=== PATIENT | female | born 1930 | race American Indian/Alaskan Native ===

== ENCOUNTER 2021-12-09 12:24 | Inpatient (IN) | payer MEDICARE ==
--- NOTE | 2021-12-09 13:44 | Emergency Department Report ---
ED General Adult HPI - General Stated complaint: AMS Time Seen by Provider: 12/09/21 13:33 Source: EMS Mode of arrival: Stretcher - History of Present Illness Initial comments: Patient is an 89-year-old female with history of Alzheimer's dementia brought in by EMS from home for evaluation of altered mental status. EMS reports that she is being visited by family members who have not seen her in 3 years and felt that she was not acting the same. Patient's only complaint at this time is being thirsty. She denies any pain. EMS reports that she lives with a payroll lead who is of the same age. EMS feels social work consult is warranted as both are severely limited physically. - Related Data Allergies Allergy/AdvReac Type Severity Reaction Status Date / Time Penicillins Allergy Anaphylaxis Verified 12/09/21 13:36 ED Review of Systems ROS: Stated complaint: AMS Other details as noted in HPI Constitutional: denies: chills, fever Respiratory: denies: cough, shortness of breath, wheezing Cardiovascular: denies: chest pain, palpitations Endocrine: no symptoms reported Gastrointestinal: denies: abdominal pain, nausea, diarrhea Musculoskeletal: denies: back pain, joint swelling, arthralgia Skin: denies: rash, lesions Neurological: denies: headache Psychiatric: denies: anxiety, depression ED Physical Exam - General General appearance: alert, in no apparent distress - Head Head exam: Present: atraumatic, normocephalic - Eye Eye exam: Present: normal appearance, EOMI - Respiratory Respiratory exam: Present: normal lung sounds bilaterally. Absent: respiratory distress - Cardiovascular Cardiovascular Exam: Present: regular rate, normal rhythm, normal heart sounds - GI/Abdominal GI/Abdominal exam: Present: soft. Absent: distended, tenderness - Neurological Exam Neurological exam: Present: alert, oriented X3 - Psychiatric Psychiatric exam: Present: normal affect, normal mood - Skin Skin exam: Present: warm, dry, intact, normal color ED Course Vital Signs 12/09/21 12/09/21 12/09/21 13:37 13:43 13:45 Temperature 98.1 F Pulse Rate 95 H 94 H 95 H Respiratory 24 25 H 26 H Rate Blood Pressure 98/61 98/61 O2 Sat by Pulse 97 96 96 Oximetry 12/09/21 12/09/21 12/09/21 13:48 14:01 14:15 Temperature Pulse Rate 93 H 92 H Respiratory 25 H 20 Rate Blood Pressure 106/58 106/58 O2 Sat by Pulse 98 96 Oximetry 12/09/21 12/09/21 12/09/21 14:31 14:45 15:01 Temperature Pulse Rate 91 H 93 H 90 Respiratory 14 16 21 Rate Blood Pressure 109/59 109/59 58/29 O2 Sat by Pulse 94 94 Oximetry 12/09/21 12/09/21 12/09/21 15:15 15:31 15:45 Temperature Pulse Rate 92 H 92 H 92 H Respiratory 26 H 23 21 Rate Blood Pressure 110/62 116/63 106/54 O2 Sat by Pulse 94 92 93 Oximetry 12/09/21 12/09/21 12/09/21 16:01 16:15 16:31 Temperature Pulse Rate 96 H 96 H 96 H Respiratory 19 17 17 Rate Blood Pressure 107/62 107/62 121/62 O2 Sat by Pulse 94 94 94 Oximetry 12/09/21 12/09/21 12/09/21 16:45 17:01 17:15 Temperature Pulse Rate 96 H 97 H 98 H Respiratory 16 18 19 Rate Blood Pressure 121/62 119/59 119/59 O2 Sat by Pulse 95 95 94 Oximetry 12/09/21 12/09/21 12/09/21 17:31 17:45 18:01 Temperature Pulse Rate 104 H 105 H 102 H Respiratory 19 21 26 H Rate Blood Pressure 102/66 115/73 121/65 O2 Sat by Pulse 98 94 95 Oximetry ED Medical Decision Making - Lab Data Result diagrams: 12/09/21 14:45 12/09/21 14:45 - Medical Decision Making Leukocytosis present at 15,000. CMP grossly unremarkable except for creatinine of 1.6. Patient given IV fluids.. Urinalysis shows WBCs greater than 182. Patient given IV Rocephin. Will admit for urinary tract infection. Patient reportedly lives with significant other who was family does not want her living with him. Patient will need social media senior associate consult during admission for possible long-term placement. Critical care attestation.: If time is entered above; I have spent that time in minutes in the direct care of this critically ill patient, excluding procedure time. ED Disposition Clinical Impression: Urinary tract infection Disposition: ADMITTED INPATIENT Is pt being admited?: Yes Condition: Stable Instructions: Urinary Tract Infection, Adult
[2021-12-09 15:10] LABS: Hematocrit 28.8 % (30.3-42.9); Hemoglobin 9.2 gm/dl (10.1-14.3); Mean Corpuscular HGB Conc 32 % (30-34); Mean Corpuscular Volume 95 fl (79-97); Platelet Count 255 K/mm3 (140-440); Red Blood Count 3.04 M/mm3 (3.65-5.03); Red Cell Distribution Width 16.6 % (13.2-15.2)
[2021-12-09 16:04] LABS: Basophils % (Manual) 0 % (0.0-1.8); Eosinophils % (Manual) 0 % (0.0-4.3); Total Cells Counted 100
[2021-12-09 16:07] LABS: Platelet Estimate Consistent w Auto; Poikilocytosis Few; Spherocytes Few
[2021-12-09 16:10] LABS: Albumin 3.3 g/dL (3.9-5); Bilirubin,Direct 0.3 mg/dL (0-0.2); Calcium 9.5 mg/dL (8.4-10.2)
[2021-12-09 17:43] LABS: Bilirubin,Urine NEG (Negative); Blood,Urine LG (Negative); Color,Urine Yellow (Yellow); Urobilinogen,Urine < 2.0 mg/dL (<2.0)
[2021-12-09 17:55] LABS: Mucus,Urine FEW /HPF
[2021-12-09 17:59] LABS: RBC,Urine > 182.0 /HPF (0.0-6.0); WBC,Urine > 182.0 /HPF (0.0-6.0)
[2021-12-09] MEDS ORDERED: LIDOCAINE-MPF (1%) 10 MG/1 ML VIAL 5 ML INFILTRATI ONE (18:07)
[2021-12-09] MEDS ORDERED: SODIUM CHLORIDE 0.9% 1000 ML 1,000 ML IV ONE (18:10)
[2021-12-09] MEDS ORDERED: ONDANSETRON 4 MG/2 ML INJ IV PRN (19:26)
[2021-12-09] MEDS ORDERED: MORPHINE 2 MG/1 ML INJ IV PRN (19:26)
[2021-12-09] MEDS: ACETAMINOPHEN 325 MG TAB PO PRN (23:47)
[2021-12-10 07:30] LABS: Hematocrit 28.3 % (30.3-42.9); Hemoglobin 9.4 gm/dl (10.1-14.3); Mean Corpuscular HGB Conc 33 % (30-34); Mean Corpuscular Volume 94 fl (79-97); Platelet Count 266 K/mm3 (140-440); Red Blood Count 3.02 M/mm3 (3.65-5.03); Red Cell Distribution Width 16.8 % (13.2-15.2)
[2021-12-10 07:31] LABS: Mean Platelet Volume 7.4 fl (6-12)
[2021-12-10 07:45] LABS: Albumin 3.4 g/dL (3.9-5); Calcium 9.9 mg/dL (8.4-10.2)
--- NOTE | 2021-12-10 08:19 | History and Physical Report ---
History of Present Illness Date of examination: 12/09/21 Date of admission: 12/09/21 19:26 Chief complaint: Altered mental status History of present illness: 89-year-old female with history of advancing dementia brought in for altered mental status. Patient lives with her boyfriend who is 91-year-old and who cooks for her and helps her around. Patient is able to walk very minimally. Decrease in ADLs. No fever. Dysuria present. Advancing dementia. Patient is totally dependent on her 91-year-old boyfriend. Patient and the family wants shelter facility for rehab to increase her mobility. ED course patient was found to have severe white count and signs and symptoms consistent with systemic inflammatory response syndrome Review of Systems ROS: Stated complaint: AMS Other details as noted in HPI Constitutional: denies: chills, fever Respiratory: denies: cough, shortness of breath, wheezing Cardiovascular: denies: chest pain, palpitations Endocrine: no symptoms reported Gastrointestinal: denies: abdominal pain, nausea, diarrhea Musculoskeletal: denies: back pain, joint swelling, arthralgia Skin: denies: rash, lesions Neurological: denies: headache Psychiatric: denies: anxiety, depression Past History Past Medical History: atrial fib, hyperlipidemia, other (Dementia, urinary tract infection) Social history: full code, other (Lives with a boyfriend who is 91-year-old) Family history: hypertension Medications and Allergies Allergies Allergy/AdvReac Type Severity Reaction Status Date / Time Penicillins Allergy Anaphylaxis Verified 12/09/21 13:36 Home Medications Medication Instructions Recorded Confirmed Last Taken Type Adults 50 Plus Multivitamin 50 tab PO DAILY 12/09/21 12/09/21 Unknown History Ascorbic Acid [Vitamin C with Stephanie 1,000 mg PO DAILY 12/09/21 12/09/21 Unknown History Hips] Atorvastatin [Lipitor Tab] 40 mg PO QHS 12/09/21 12/09/21 Unknown History Eliquis 5 mg PO BID 12/09/21 12/09/21 Unknown History Gabapentin 100 mg PO BID 12/09/21 12/09/21 Unknown History Klor-Con M20 20 meq PO BID 12/09/21 12/09/21 Unknown History Latanoprost 0.005 drop AU QHS 12/09/21 12/09/21 Unknown History Pantoprazole 40 mg PO DAILY 12/09/21 12/09/21 Unknown History amLODIPine 5 mg PO DAILY 12/09/21 12/09/21 Unknown History Active Meds: Active Medications Acetaminophen (Acetaminophen 325 Mg Tab) 650 mg PO Q4H PRN PRN Reason: Pain MILD(1-3)/Fever >100.5/LOPEZ Last Admin: 12/09/21 23:47 Dose: 650 mg Ceftriaxone Sodium (Rocephin/Ns 2 Gm/100 Ml) 2 gm in 100 mls @ 200 mls/hr IV Q24HR BREEZY; Protocol Morphine Sulfate (Morphine 2 Mg/1 Ml Inj) 2 mg IV Q4H PRN PRN Reason: Pain, Moderate (4-6) Ondansetron HCl (Ondansetron 4 Mg/2 Ml Inj) 4 mg IV Q8H PRN PRN Reason: Nausea And Vomiting Sodium Chloride (Sodium Chloride 0.9% 10 Ml Flush Syringe) 10 ml IV BID BREEZY Last Admin: 12/09/21 23:50 Dose: 10 ml Sodium Chloride (Sodium Chloride 0.9% 10 Ml Flush Syringe) 10 ml IV PRN PRN PRN Reason: LINE FLUSH Exam - Constitutional Vitals: Temp Pulse Resp BP Pulse Ox 97.9 F 82 19 90/54 96 12/10/21 05:12 12/10/21 05:12 12/10/21 05:12 12/10/21 05:12 12/10/21 05:12 General appearance: Present: no acute distress, well-nourished - EENT Eyes: Present: PERRL ENT: hearing intact, clear oral mucosa - Neck Neck: Present: supple, normal ROM - Respiratory Respiratory effort: normal Respiratory: bilateral: CTA - Cardiovascular Heart rate: 78 Rhythm: regular Heart Sounds: Present: S1 & S2. Absent: rub, click - Extremities Extremities: no ischemia, pulses intact, pulses symmetrical, No edema Peripheral Pulses: within normal limits - Abdominal General gastrointestinal: Present: soft, non-tender, non-distended, normal bowel sounds Female genitourinary: Present: normal - Integumentary Integumentary: Present: clear, warm, dry - Musculoskeletal Musculoskeletal: gait normal, strength equal bilaterally - Psychiatric Psychiatric: appropriate mood/affect, depressed, other (Short-term memory responsiveness) - Neurologic Neurologic: CNII-XII intact, moves all extremities - Allied Health Allied health notes reviewed: nursing, case management Results - Labs CBC & Chem 7: 12/10/21 05:56 12/10/21 05:56 Labs: Laboratory Last Values WBC 16.0 K/mm3 (4.5-11.0) H 12/10/21 05:56 RBC 3.02 M/mm3 (3.65-5.03) L 12/10/21 05:56 Hgb 9.4 gm/dl (10.1-14.3) L 12/10/21 05:56 Hct 28.3 % (30.3-42.9) L 12/10/21 05:56 MCV 94 fl (79-97) 12/10/21 05:56 MCH 31 pg (28-32) 12/10/21 05:56 MCHC 33 % (30-34) 12/10/21 05:56 RDW 16.8 % (13.2-15.2) H 12/10/21 05:56 Plt Count 266 K/mm3 (140-440) 12/10/21 05:56 [place] % (Auto) Tailer In 12/10/21 05:56 Add Manual Diff Complete 12/09/21 14:45 Total Counted 100 12/09/21 14:45 Seg Neuts % (Manual) 84.0 % (40.0-70.0) H 12/09/21 14:45 Band Neutrophils % 0 % 12/09/21 14:45 Lymphocytes % (Manual) 3.0 % (13.4-35.0) L 12/09/21 14:45 Reactive Lymphs % (Man) 0 % 12/09/21 14:45 Monocytes % (Manual) 13.0 % (0.0-7.3) H 12/09/21 14:45 Eosinophils % (Manual) 0 % (0.0-4.3) 12/09/21 14:45 Basophils % (Manual) 0 % (0.0-1.8) 12/09/21 14:45 Metamyelocytes % 0 % 12/09/21 14:45 Myelocytes % 0 % 12/09/21 14:45 Promyelocytes % 0 % 12/09/21 14:45 Blast Cells % 0 % 12/09/21 14:45 Nucleated RBC % Not Reportable 12/09/21 14:45 Seg Neutrophils # Man 12.8 K/mm3 (1.8-7.7) H 12/09/21 14:45 Band Neutrophils # 0.0 K/mm3 12/09/21 14:45 Lymphocytes # (Manual) 0.5 K/mm3 (1.2-5.4) L 12/09/21 14:45 Abs React Lymphs (Man) 0.0 K/mm3 12/09/21 14:45 Monocytes # (Manual) 2.0 K/mm3 (0.0-0.8) H 12/09/21 14:45 Eosinophils # (Manual) 0.0 K/mm3 (0.0-0.4) 12/09/21 14:45 Basophils # (Manual) 0.0 K/mm3 (0.0-0.1) 12/09/21 14:45 Metamyelocytes # 0.0 K/mm3 12/09/21 14:45 Myelocytes # 0.0 K/mm3 12/09/21 14:45 Promyelocytes # 0.0 K/mm3 12/09/21 14:45 Blast Cells # 0.0 K/mm3 12/09/21 14:45 WBC Morphology Not Reportable 12/09/21 14:45 Hypersegmented Neuts Not Reportable 12/09/21 14:45 Hyposegmented Neuts Rare 12/09/21 14:45 Hypogranular Neuts Not Reportable 12/09/21 14:45 Smudge Cells Not Reportable 12/09/21 14:45 Toxic Granulation Not Reportable 12/09/21 14:45 Toxic Vacuolation Not Reportable 12/09/21 14:45 Dohle Bodies Not Reportable 12/09/21 14:45 Pelger-Huet Anomaly Not Reportable 12/09/21 14:45 Jocelyn Rods Not Reportable 12/09/21 14:45 Platelet Estimate Consistent w auto 12/09/21 14:45 Clumped Platelets Not Reportable 12/09/21 14:45 Plt Clumps, EDTA Not Reportable 12/09/21 14:45 Large Platelets Not Reportable 12/09/21 14:45 Giant Platelets Not Reportable 12/09/21 14:45 Platelet Satelliting Not Reportable 12/09/21 14:45 Plt Morphology Comment Not Reportable 12/09/21 14:45 RBC Morphology Not Reportable 12/09/21 14:45 Dimorphic RBCs Not Reportable 12/09/21 14:45 Polychromasia Rare 12/09/21 14:45 Hypochromasia Not Reportable 12/09/21 14:45 Poikilocytosis Few 12/09/21 14:45 Anisocytosis Not Reportable 12/09/21 14:45 Microcytosis Not Reportable 12/09/21 14:45 Macrocytosis Not Reportable 12/09/21 14:45 Spherocytes Few 12/09/21 14:45 Pappenheimer Bodies Not Reportable 12/09/21 14:45 Sickle Cells Not Reportable 12/09/21 14:45 Target Cells Not Reportable 12/09/21 14:45 Tear Drop Cells Not Reportable 12/09/21 14:45 Ovalocytes Not Reportable 12/09/21 14:45 Helmet Cells Not Reportable 12/09/21 14:45 [place] Bodies Not Reportable 12/09/21 14:45 [place] Rings Not Reportable 12/09/21 14:45 [place] Cells Not Reportable 12/09/21 14:45 Bite Cells Not Reportable 12/09/21 14:45 Crenated Cell Not Reportable 12/09/21 14:45 Elliptocytes Not Reportable 12/09/21 14:45 Acanthocytes (Spur) Rare 12/09/21 14:45 Rouleaux Not Reportable 12/09/21 14:45 Hemoglobin C Crystals Not Reportable 12/09/21 14:45 Schistocytes Not Reportable 12/09/21 14:45 Malaria parasites Not Reportable 12/09/21 14:45 Shawn Bodies Not Reportable 12/09/21 14:45 Hem Pathologist Commnt No 12/09/21 14:45 Sodium 138 mmol/L (137-145) 12/10/21 05:56 Potassium 5.1 mmol/L (3.6-5.0) H 12/10/21 05:56 Chloride 104.4 mmol/L (98-107) 12/10/21 05:56 Carbon Dioxide 21 mmol/L (22-30) L 12/10/21 05:56 Anion Gap 18 mmol/L 12/10/21 05:56 BUN 25 mg/dL (7-17) H 12/10/21 05:56 Creatinine 1.8 mg/dL (0.6-1.2) H 12/10/21 05:56 Estimated GFR 32 ml/min 12/10/21 05:56 BUN/Creatinine Ratio 14 % 12/10/21 05:56 Glucose 94 mg/dL (65-100) 12/10/21 05:56 Calcium 9.9 mg/dL (8.4-10.2) 12/10/21 05:56 Total Bilirubin 1.00 mg/dL (0.1-1.2) 12/10/21 05:56 Direct Bilirubin 0.3 mg/dL (0-0.2) H 12/09/21 14:45 Indirect Bilirubin 0.6 mg/dL 12/09/21 14:45 AST 31 units/L (5-40) 12/10/21 05:56 ALT 7 units/L (7-56) 12/10/21 05:56 Alkaline Phosphatase 81 units/L (35-129) 12/10/21 05:56 Total Protein 7.8 g/dL (6.3-8.2) 12/10/21 05:56 Albumin 3.4 g/dL (3.9-5) L 12/10/21 05:56 Albumin/Globulin Ratio 0.8 % 12/10/21 05:56 Urine Color Yellow (Yellow) 12/09/21 15:21 Urine Turbidity Turbid (Clear) 12/09/21 15:21 Urine pH 6.0 (5.0-7.0) 12/09/21 15:21 Ur Specific [place] 1.010 (1.003-1.030) 12/09/21 15:21 Urine Protein 100 mg/dl mg/dL (Negative) 12/09/21 15:21 Urine Glucose (UA) Neg mg/dL (Negative) 12/09/21 15:21 Urine Ketones Neg mg/dL (Negative) 12/09/21 15:21 Urine Blood Lg (Negative) 12/09/21 15:21 Urine Nitrite Neg (Negative) 12/09/21 15:21 Urine Bilirubin Neg (Negative) 12/09/21 15:21 Urine Urobilinogen < 2.0 mg/dL (<2.0) 12/09/21 15:21 Ur Leukocyte Esterase Lg (Negative) 12/09/21 15:21 Urine WBC (Auto) > 182.0 /HPF (0.0-6.0) H 12/09/21 15:21 Urine RBC (Auto) > 182.0 /HPF (0.0-6.0) 12/09/21 15:21 U Epithel Cells (Auto) 6.0 /HPF (0-13.0) 12/09/21 15:21 Urine WBC Clumps 3+ /HPF 12/09/21 15:21 Urine Mucus Few /HPF 12/09/21 15:21 Short CBC 12/09/21 12/10/21 Range/Units 14:45 05:56 WBC 15.2 H 16.0 H (4.5-11.0) K/mm3 Hgb 9.2 L 9.4 L (10.1-14.3) gm/dl Hct 28.8 L 28.3 L (30.3-42.9) % Plt Count 255 266 (140-440) K/mm3 BMP 12/09/21 12/10/21 14:45 05:56 Sodium 138 138 Potassium 4.9 5.1 H Chloride 106.9 104.4 Carbon Dioxide 19 L 21 L BUN 23 H 25 H Creatinine 1.6 H 1.8 H Glucose 112 H 94 Calcium 9.5 9.9 Liver Function 12/09/21 12/10/21 Range/Units 14:45 05:56 Total Bilirubin 0.90 1.00 (0.1-1.2) mg/dL Direct Bilirubin 0.3 H (0-0.2) mg/dL AST 29 31 (5-40) units/L ALT 7 7 (7-56) units/L Alkaline Phosphatase 61 81 (35-129) units/L Albumin 3.3 L 3.4 L (3.9-5) g/dL Urine 12/09/21 Range/Units 15:21 Urine Color Yellow (Yellow) Urine pH 6.0 (5.0-7.0) Ur Specific [place] 1.010 (1.003-1.030) Urine Protein 100 mg/dl (Negative) mg/dL Urine Glucose (UA) Neg (Negative) mg/dL Short CBC 12/09/21 12/10/21 Range/Units 14:45 05:56 WBC 15.2 H 16.0 H (4.5-11.0) K/mm3 Hgb 9.2 L 9.4 L (10.1-14.3) gm/dl Hct 28.8 L 28.3 L (30.3-42.9) % Plt Count 255 266 (140-440) K/mm3 BMP 12/09/21 12/10/21 14:45 05:56 Sodium 138 138 Potassium 4.9 5.1 H Chloride 106.9 104.4 Carbon Dioxide 19 L 21 L BUN 23 H 25 H Creatinine 1.6 H 1.8 H Glucose 112 H 94 Calcium 9.5 9.9 Liver Function 12/09/21 12/10/21 Range/Units 14:45 05:56 Total Bilirubin 0.90 1.00 (0.1-1.2) mg/dL Direct Bilirubin 0.3 H (0-0.2) mg/dL AST 29 31 (5-40) units/L ALT 7 7 (7-56) units/L Alkaline Phosphatase 61 81 (35-129) units/L Albumin 3.3 L 3.4 L (3.9-5) g/dL Urine 12/09/21 Range/Units 15:21 Urine Color Yellow (Yellow) Urine pH 6.0 (5.0-7.0) Ur Specific [place] 1.010 (1.003-1.030) Urine Protein 100 mg/dl (Negative) mg/dL Urine Glucose (UA) Neg (Negative) mg/dL [place]/IV: Voiding Method External Female Catheter Assessment and Plan Advance Directives: Yes (Full code) VTE prophylaxis?: Chemical Plan of care discussed with patient/family: Yes - Patient Problems (1) SIRS (systemic inflammatory response syndrome) Current Visit: Yes Status: Acute Plan to address problem: High white count and urinary tract infection consistent with systemic inflammatory response syndrome (2) Urinary tract infection Current Visit: Yes Status: Acute Plan to address problem: Patient initiated on Rocephin (3) A-fib Current Visit: Yes Status: Chronic Qualifiers: Atrial fibrillation type: paroxysmal Qualified Code(s): I48.0 - Paroxysmal atrial fibrillation Plan to address problem: On Eliquis (4) HLD (hyperlipidemia) Current Visit: Yes Status: Acute (5) HTN (hypertension) Current Visit: Yes Status: Chronic Qualifiers: Hypertension type: primary hypertension Qualified Code(s): I10 - Essential (primary) hypertension Plan to address problem: Continue antihypertensives (6) YUE (acute kidney injury) Current Visit: Yes Status: Acute Plan to address problem: IV fluids for now Vasomotor nephropathy (7) Malnutrition Current Visit: Yes Status: Chronic Plan to address problem: On dietary supplements (8) DVT prophylaxis Current Visit: Yes Status: Acute Plan to address problem: On anticoagulation and GI prophylaxis (9) Advance care planning Current Visit: Yes Status: Acute Plan to address problem: Discussed with [facility] family disease education plan and diagnosis and prognosis. Patient is full code. Family acknowledges understanding and agreement with care plan. +30 minutes. Family just wants full code and shelter facility placement.
[2021-12-10 09:48] LABS: Basophils % (Manual) 0 % (0.0-1.8); Eosinophils % (Manual) 0 % (0.0-4.3); Total Cells Counted 100
[2021-12-10 09:53] LABS: Poikilocytosis Few; Target Cells Rare
[2021-12-10 09:54] LABS: Burr Cells Rare; Large Platelets Rare; Platelet Estimate Consistent w Auto; Spherocytes Rare
[2021-12-10] MEDS: cefTRIAXone/NS 2 GM/100 ML 2 GM/100 ML BAG IV SCH (12:13)
[2021-12-10] MEDS: ACETAMINOPHEN 325 MG TAB PO PRN (23:45)
[2021-12-11] MEDS: cefTRIAXone/NS 2 GM/100 ML 2 GM/100 ML BAG IV SCH (10:00)
--- NOTE | 2021-12-11 10:49 | Progress Note ---
Assessment and Plan - Patient Problems (1) SIRS (systemic inflammatory response syndrome) Current Visit: Yes Status: Acute Plan to address problem: High white count and urinary tract infection consistent with systemic inflammatory response syndrome (2) Urinary tract infection Current Visit: Yes Status: Acute Plan to address problem: Patient initiated on Rocephin (3) A-fib Current Visit: Yes Status: Chronic Qualifiers: Atrial fibrillation type: paroxysmal Qualified Code(s): I48.0 - Paroxysmal atrial fibrillation Plan to address problem: On Eliquis (4) HLD (hyperlipidemia) Current Visit: Yes Status: Acute (5) HTN (hypertension) Current Visit: Yes Status: Chronic Qualifiers: Hypertension type: primary hypertension Qualified Code(s): I10 - Essential (primary) hypertension Plan to address problem: Continue antihypertensives (6) YUE (acute kidney injury) Current Visit: Yes Status: Acute Plan to address problem: IV fluids for now Vasomotor nephropathy (7) Malnutrition Current Visit: Yes Status: Chronic Plan to address problem: On dietary supplements (8) DVT prophylaxis Current Visit: Yes Status: Acute Plan to address problem: On anticoagulation and GI prophylaxis (9) Advance care planning Current Visit: Yes Status: Acute Plan to address problem: Discussed with [facility] disease education plan and diagnosis and prognosis. Patient is full code. Family acknowledges understanding and agreement with care plan. +30 minutes. Family just wants full code and assisted fa cility placement. (10) Discharge planning issues Current Visit: Yes Status: Acute Plan to address problem: Patient needs assisted facility placement Subjective Date of service: 12/10/21 Principal diagnosis: UTI,Debility Interval history: History of present illness: 89-year-old female with history of advancing dementia brought in for altered mental status. Patient lives with her boyfriend who is 91-year-old and who cooks for her and helps her around. Patient is able to walk very minimally. Decrease in ADLs. No fever. Dysuria present. Advancing dementia. Patient is totally dependent on her 91-year-old boyfriend. Patient and the family wants assisted facility for rehab to increase her mobility. ED course patient was found to have severe white count and signs and symptoms consistent with systemic inflammatory response syndrome Objective - Constitutional Vitals: Vital Signs - 12hr 12/10/21 12/11/21 23:42 04:43 Temperature 100.2 F H 98.2 F Pulse Rate 99 H 87 Respiratory 18 18 Rate Blood Pressure 118/60 99/60 [Right] O2 Sat by Pulse 97 95 Oximetry General appearance: Present: no acute distress, well-nourished - EENT Eyes: PERRL, EOM intact ENT: hearing intact, clear oral mucosa Ears: bilateral: normal - Neck Neck: supple, normal ROM - Respiratory Respiratory effort: normal Respiratory: bilateral: CTA - Breasts Breasts: normal - Cardiovascular Heart rate: 78 Rhythm: regular Heart Sounds: Present: S1 & S2. Absent: gallop, rub Extremities: pulses intact, No edema, normal color, Full ROM - Gastrointestinal General gastrointestinal: Present: soft, non-tender, non-distended, normal bowel sounds - Genitourinary Female genitourinary: normal - Integumentary Integumentary: clear, warm, dry - Musculoskeletal Musculoskeletal: 1, strength equal bilaterally - Neurologic Neurologic: moves all extremities - Psychiatric Psychiatric: memory intact, appropriate mood/affect, intact judgment & insight - Labs CBC & Chem 7: 12/10/21 05:56 12/10/21 05:56
--- NOTE | 2021-12-11 11:57 | Progress Note ---
Assessment and Plan - Patient Problems (1) SIRS (systemic inflammatory response syndrome) Current Visit: Yes Status: Acute Plan to address problem: High white count and urinary tract infection consistent with systemic inflammatory response syndrome (2) Urinary tract infection Current Visit: Yes Status: Acute Plan to address problem: Patient initiated on Rocephin (3) A-fib Current Visit: Yes Status: Chronic Qualifiers: Atrial fibrillation type: paroxysmal Qualified Code(s): I48.0 - Paroxysmal atrial fibrillation Plan to address problem: On Eliquis (4) HLD (hyperlipidemia) Current Visit: Yes Status: Acute Plan to address problem: Continue statins (5) HTN (hypertension) Current Visit: Yes Status: Chronic Qualifiers: Hypertension type: primary hypertension Qualified Code(s): I10 - Essential (primary) hypertension Plan to address problem: Continue antihypertensives (6) YUE (acute kidney injury) Current Visit: Yes Status: Acute Plan to address problem: IV fluids for now Vasomotor nephropathy (7) Malnutrition Current Visit: Yes Status: Chronic Plan to address problem: On dietary supplements (8) DVT prophylaxis Current Visit: Yes Status: Acute Plan to address problem: On anticoagulation and GI prophylaxis (9) Advance care planning Current Visit: Yes Status: Acute Plan to address problem: Discussed with [facility] disease education plan and diagnosis and prognosis. Patient is full code. Family acknowledges understanding and agreement with care plan. +30 minutes. Family just wants full code and jail facility placement. Subjective Date of service: 12/11/21 Principal diagnosis: SIRS, UTI, severe debility Interval history: History of present illness: 89-year-old female with history of advancing dementia brought in for altered mental status. Patient lives with her boyfriend who is 91-year-old and who cooks for her and helps her around. Patient is able to walk very minimally. Decrease in ADLs. No fever. Dysuria present. Advancing dementia. Patient is totally dependent on her 91-year-old boyfriend. Patient and the family wants jail facility for rehab to increase her mobility. ED course patient was found to have severe white count and signs and symptoms consistent with systemic inflammatory response syndrome 12/10/2021 Patient being treated for UTI patient needs SNF placement 12/11/2021 Patient looks better and feels better Needs SNF placement. And SIRS Objective - Constitutional Vitals: Vital Signs - 12hr 12/11/21 04:43 Temperature 98.2 F Pulse Rate 87 Respiratory 18 Rate Blood Pressure 99/60 [Right] O2 Sat by Pulse 95 Oximetry General appearance: Present: no acute distress, well-nourished - EENT Eyes: PERRL, EOM intact ENT: hearing intact, clear oral mucosa Ears: bilateral: normal - Neck Neck: supple, normal ROM - Respiratory Respiratory effort: normal Respiratory: bilateral: CTA - Breasts Breasts: normal - Cardiovascular Heart rate: 78 Rhythm: irregularly irregular Heart Sounds: Present: S1 & S2. Absent: gallop, rub Extremities: pulses intact, No edema, normal color, Full ROM - Gastrointestinal General gastrointestinal: Present: soft, non-tender, non-distended, normal bowel sounds - Genitourinary Female genitourinary: normal - Integumentary Integumentary: clear, warm, dry - Musculoskeletal Musculoskeletal: 1, strength equal bilaterally - Neurologic Neurologic: moves all extremities - Psychiatric Psychiatric: memory intact, appropriate mood/affect, intact judgment & insight - Labs CBC & Chem 7: 12/10/21 05:56 12/10/21 05:56
[2021-12-11] MEDS ORDERED: LIDOCAINE-MPF (1%) 10 MG/1 ML VIAL 5 ML INFILTRATI ONE (14:00)
[2021-12-12] MEDS: levoFLOXacin 250 MG TAB PO SCH (22:41)
--- NOTE | 2021-12-13 16:55 | Progress Note ---
Assessment and Plan - Patient Problems (1) SIRS (systemic inflammatory response syndrome) Current Visit: Yes Status: Acute Plan to address problem: High white count and urinary tract infection consistent with systemic inflammatory response syndrome (2) Urinary tract infection Current Visit: Yes Status: Acute Plan to address problem: Patient initiated on Rocephin (3) A-fib Current Visit: Yes Status: Chronic Qualifiers: Atrial fibrillation type: paroxysmal Qualified Code(s): I48.0 - Paroxysmal atrial fibrillation Plan to address problem: On Eliquis (4) HLD (hyperlipidemia) Current Visit: Yes Status: Acute Plan to address problem: Continue statins (5) HTN (hypertension) Current Visit: Yes Status: Chronic Qualifiers: Hypertension type: primary hypertension Qualified Code(s): I10 - Essential (primary) hypertension Plan to address problem: Continue antihypertensives (6) YUE (acute kidney injury) Current Visit: Yes Status: Acute Plan to address problem: IV fluids for now Vasomotor nephropathy (7) Malnutrition Current Visit: Yes Status: Chronic Plan to address problem: On dietary supplements (8) DVT prophylaxis Current Visit: Yes Status: Acute Plan to address problem: On anticoagulation and GI prophylaxis (9) Advance care planning Current Visit: Yes Status: Acute Plan to address problem: Discussed with [facility] disease education plan and diagnosis and prognosis. Patient is full code. Family acknowledges understanding and agreement with care plan. +30 minutes. Family just wants full code and nursing home facility placement. Subjective Date of service: 12/13/21 Principal diagnosis: SIRS, UTI, severe debility Interval history: History of present illness: 89-year-old female with history of advancing dementia brought in for altered mental status. Patient lives with her boyfriend who is 91-year-old and who cooks for her and helps her around. Patient is able to walk very minimally. Decrease in ADLs. No fever. Dysuria present. Advancing dementia. Patient is totally dependent on her 91-year-old boyfriend. Patient and the family wants nursing home facility for rehab to increase her mobility. ED course patient was found to have severe white count and signs and symptoms consistent with systemic inflammatory response syndrome 12/10/2021 Patient being treated for UTI patient needs SNF placement 12/11/2021 Patient looks better and feels better Needs SNF placement. And SIRS Objective - Constitutional Vitals: Vital Signs - 12hr 12/13/21 12/13/21 10:00 11:27 Temperature 97.8 F Pulse Rate 89 Respiratory 16 Rate Blood Pressure 114/69 O2 Sat by Pulse 98 99 Oximetry General appearance: Present: no acute distress, well-nourished - EENT Eyes: PERRL, EOM intact ENT: hearing intact, clear oral mucosa Ears: bilateral: normal - Neck Neck: supple, normal ROM - Respiratory Respiratory effort: normal Respiratory: bilateral: CTA - Breasts Breasts: normal - Cardiovascular Heart rate: 78 Rhythm: regular Heart Sounds: Present: S1 & S2. Absent: gallop, rub Extremities: pulses intact, No edema, normal color, Full ROM - Gastrointestinal General gastrointestinal: Present: soft, non-tender, non-distended, normal bowel sounds - Genitourinary Female genitourinary: normal - Integumentary Integumentary: clear, warm, dry - Musculoskeletal Musculoskeletal: 1, strength equal bilaterally - Neurologic Neurologic: moves all extremities - Psychiatric Psychiatric: memory intact, appropriate mood/affect, intact judgment & insight - Labs CBC & Chem 7: 12/10/21 05:56 12/10/21 05:56
--- NOTE | 2021-12-13 17:00 | Progress Note ---
Assessment and Plan - Patient Problems (1) SIRS (systemic inflammatory response syndrome) Current Visit: Yes Status: Acute Plan to address problem: High white count and urinary tract infection consistent with systemic inflammatory response syndrome (2) Urinary tract infection Current Visit: Yes Status: Acute Plan to address problem: Patient initiated on Rocephin (3) A-fib Current Visit: Yes Status: Chronic Qualifiers: Atrial fibrillation type: paroxysmal Qualified Code(s): I48.0 - Paroxysmal atrial fibrillation Plan to address problem: On Eliquis (4) HLD (hyperlipidemia) Current Visit: Yes Status: Acute Plan to address problem: Continue statins (5) HTN (hypertension) Current Visit: Yes Status: Chronic Qualifiers: Hypertension type: primary hypertension Qualified Code(s): I10 - Essential (primary) hypertension Plan to address problem: Continue antihypertensives (6) YUE (acute kidney injury) Current Visit: Yes Status: Acute Plan to address problem: IV fluids for now Vasomotor nephropathy (7) Malnutrition Current Visit: Yes Status: Chronic Plan to address problem: On dietary supplements (8) DVT prophylaxis Current Visit: Yes Status: Acute Plan to address problem: On anticoagulation and GI prophylaxis (9) Advance care planning Current Visit: Yes Status: Acute Plan to address problem: Discussed with [facility] disease education plan and diagnosis and prognosis. Patient is full code. Family acknowledges understanding and agreement with care plan. +30 minutes. Family just wants full code and jail facility placement. Subjective Date of service: 12/12/21 Principal diagnosis: SIRS, UTI, severe debility Interval history: History of present illness: 89-year-old female with history of advancing dementia brought in for altered mental status. Patient lives with her boyfriend who is 91-year-old and who cooks for her and helps her around. Patient is able to walk very minimally. Decrease in ADLs. No fever. Dysuria present. Advancing dementia. Patient is totally dependent on her 91-year-old boyfriend. Patient and the family wants jail facility for rehab to increase her mobility. ED course patient was found to have severe white count and signs and symptoms consistent with systemic inflammatory response syndrome 12/10/2021 Patient being treated for UTI patient needs SNF placement 12/11/2021 Patient looks better and feels better Needs SNF placement. And SIRS 12/12/21 Patient looks better and feels better Needs SNF placement. And SIRS Objective - Constitutional Vitals: Vital Signs - 12hr 12/13/21 12/13/21 10:00 11:27 Temperature 97.8 F Pulse Rate 89 Respiratory 16 Rate Blood Pressure 114/69 O2 Sat by Pulse 98 99 Oximetry General appearance: Present: no acute distress, well-nourished - EENT Eyes: PERRL, EOM intact ENT: hearing intact, clear oral mucosa Ears: bilateral: normal - Neck Neck: supple, normal ROM - Respiratory Respiratory effort: normal Respiratory: bilateral: CTA - Breasts Breasts: normal - Cardiovascular Heart rate: 78 Rhythm: regular Heart Sounds: Present: S1 & S2. Absent: gallop, rub Extremities: pulses intact, No edema, normal color, Full ROM - Gastrointestinal General gastrointestinal: Present: soft, non-tender, non-distended, normal bowel sounds - Genitourinary Female genitourinary: normal - Integumentary Integumentary: clear, warm, dry - Musculoskeletal Musculoskeletal: 1, strength equal bilaterally - Neurologic Neurologic: moves all extremities - Psychiatric Psychiatric: memory intact, appropriate mood/affect, intact judgment & insight - Labs CBC & Chem 7: 12/10/21 05:56 12/10/21 05:56
[2021-12-14] MEDS: levoFLOXacin 250 MG TAB PO SCH (14:24)
--- NOTE | 2021-12-14 17:10 | Progress Note ---
Assessment and Plan - Patient Problems (1) SIRS (systemic inflammatory response syndrome) Current Visit: Yes Status: Acute Plan to address problem: High white count and urinary tract infection consistent with systemic inflammatory response syndrome (2) Urinary tract infection Current Visit: Yes Status: Acute Plan to address problem: Patient initiated on Rocephin (3) A-fib Current Visit: Yes Status: Chronic Qualifiers: Atrial fibrillation type: paroxysmal Qualified Code(s): I48.0 - Paroxysmal atrial fibrillation Plan to address problem: On Eliquis (4) HLD (hyperlipidemia) Current Visit: Yes Status: Acute Plan to address problem: Continue statins (5) HTN (hypertension) Current Visit: Yes Status: Chronic Qualifiers: Hypertension type: primary hypertension Qualified Code(s): I10 - Essential (primary) hypertension Plan to address problem: Continue antihypertensives (6) YUE (acute kidney injury) Current Visit: Yes Status: Acute Plan to address problem: IV fluids for now Vasomotor nephropathy (7) Malnutrition Current Visit: Yes Status: Chronic Plan to address problem: On dietary supplements (8) DVT prophylaxis Current Visit: Yes Status: Acute Plan to address problem: On anticoagulation and GI prophylaxis (9) Advance care planning Current Visit: Yes Status: Acute Plan to address problem: Discussed with [facility] disease education plan and diagnosis and prognosis. Patient is full code. Family acknowledges understanding and agreement with care plan. +30 minutes. Family just wants full code and senior living facility placement. (10) Discharge planning issues Current Visit: Yes Status: Acute Plan to address problem: Patient needs senior living facility placement To discussed with case management about placement Check labs in a.m. Subjective Date of service: 12/14/21 Principal diagnosis: SIRS, UTI, severe debility Interval history: History of present illness: 89-year-old female with history of advancing dementia brought in for altered mental status. Patient lives with her boyfriend who is 91-year-old and who cooks for her and helps her around. Patient is able to walk very minimally. Decrease in ADLs. No fever. Dysuria present. Advancing dementia. Patient is totally dependent on her 91-year-old boyfriend. Patient and the family wants senior living facility for rehab to increase her mobility. ED course patient was found to have severe white count and signs and symptoms consistent with systemic inflammatory response syndrome 12/10/2021 Patient being treated for UTI patient needs SNF placement 12/11/2021 Patient looks better and feels better Needs SNF placement. And SIRS 12/12/21 Patient looks better and feels better Needs SNF placement. And SIRS 12/13/2021 Afebrile Waiting for placement 12/14/2021 Afebrile On oral antibiotics Waiting for placement Objective - Constitutional Vitals: Vital Signs - 12hr 12/14/21 10:05 O2 Sat by Pulse 97 Oximetry General appearance: Present: no acute distress, well-nourished - EENT Eyes: PERRL, EOM intact ENT: hearing intact, clear oral mucosa Ears: bilateral: normal - Neck Neck: supple, normal ROM - Respiratory Respiratory effort: normal Respiratory: bilateral: CTA - Breasts Breasts: normal - Cardiovascular Heart rate: 78 Rhythm: regular Heart Sounds: Present: S1 & S2. Absent: gallop, rub Extremities: pulses intact, No edema, normal color, Full ROM - Gastrointestinal General gastrointestinal: Present: soft, non-tender, non-distended, normal bowel sounds - Genitourinary Female genitourinary: normal - Integumentary Integumentary: clear, warm, dry - Musculoskeletal Musculoskeletal: 1, strength equal bilaterally - Neurologic Neurologic: moves all extremities - Psychiatric Psychiatric: memory intact, appropriate mood/affect, intact judgment & insight - Labs CBC & Chem 7: 12/10/21 05:56 12/10/21 05:56
[2021-12-15 04:39] VITALS: BP 102/59
--- NOTE | 2021-12-15 13:11 | Progress Note ---
History Interval history: 89 YO Female HD#6 with SIRS, Atrial Fib, YUE, Debility pending SNF placement. Hospitalist Physical - Constitutional Vitals: Temp Pulse Resp BP Pulse Ox 97.7 F 89 16 102/59 97 12/15/21 04:17 12/15/21 04:17 12/15/21 04:17 12/15/21 04:17 12/15/21 11:11 General appearance: Present: no acute distress, well-nourished Results - Labs CBC & Chem 7: 12/10/21 05:56 12/10/21 05:56 Labs: Laboratory Last Values WBC 16.0 K/mm3 (4.5-11.0) H 12/10/21 05:56 RBC 3.02 M/mm3 (3.65-5.03) L 12/10/21 05:56 Hgb 9.4 gm/dl (10.1-14.3) L 12/10/21 05:56 Hct 28.3 % (30.3-42.9) L 12/10/21 05:56 MCV 94 fl (79-97) 12/10/21 05:56 MCH 31 pg (28-32) 12/10/21 05:56 MCHC 33 % (30-34) 12/10/21 05:56 RDW 16.8 % (13.2-15.2) H 12/10/21 05:56 Plt Count 266 K/mm3 (140-440) 12/10/21 05:56 Fountain % (Auto) Roll Weigher 12/10/21 05:56 Add Manual Diff Complete 12/10/21 05:56 Total Counted 100 12/10/21 05:56 Seg Neuts % (Manual) 81.0 % (40.0-70.0) H 12/10/21 05:56 Band Neutrophils % 0 % 12/10/21 05:56 Lymphocytes % (Manual) 2.0 % (13.4-35.0) L 12/10/21 05:56 Reactive Lymphs % (Man) 0 % 12/10/21 05:56 Monocytes % (Manual) 17.0 % (0.0-7.3) H 12/10/21 05:56 Eosinophils % (Manual) 0 % (0.0-4.3) 12/10/21 05:56 Basophils % (Manual) 0 % (0.0-1.8) 12/10/21 05:56 Metamyelocytes % 0 % 12/10/21 05:56 Myelocytes % 0 % 12/10/21 05:56 Promyelocytes % 0 % 12/10/21 05:56 Blast Cells % 0 % 12/10/21 05:56 Nucleated RBC % Not Reportable 12/10/21 05:56 Seg Neutrophils # Man 13.0 K/mm3 (1.8-7.7) H 12/10/21 05:56 Band Neutrophils # 0.0 K/mm3 12/10/21 05:56 Lymphocytes # (Manual) 0.3 K/mm3 (1.2-5.4) L 12/10/21 05:56 Abs React Lymphs (Man) 0.0 K/mm3 12/10/21 05:56 Monocytes # (Manual) 2.7 K/mm3 (0.0-0.8) H 12/10/21 05:56 Eosinophils # (Manual) 0.0 K/mm3 (0.0-0.4) 12/10/21 05:56 Basophils # (Manual) 0.0 K/mm3 (0.0-0.1) 12/10/21 05:56 Metamyelocytes # 0.0 K/mm3 12/10/21 05:56 Myelocytes # 0.0 K/mm3 12/10/21 05:56 Promyelocytes # 0.0 K/mm3 12/10/21 05:56 Blast Cells # 0.0 K/mm3 12/10/21 05:56 WBC Morphology Not Reportable 12/10/21 05:56 Hypersegmented Neuts Not Reportable 12/10/21 05:56 Hyposegmented Neuts Rare 12/10/21 05:56 Hypogranular Neuts Not Reportable 12/10/21 05:56 Smudge Cells Not Reportable 12/10/21 05:56 Toxic Granulation Not Reportable 12/10/21 05:56 Toxic Vacuolation Not Reportable 12/10/21 05:56 Dohle Bodies Not Reportable 12/10/21 05:56 Pelger-Huet Anomaly Not Reportable 12/10/21 05:56 Jocelyn Rods Not Reportable 12/10/21 05:56 Platelet Estimate Consistent w auto 12/10/21 05:56 Clumped Platelets Not Reportable 12/10/21 05:56 Plt Clumps, EDTA Not Reportable 12/10/21 05:56 Large Platelets Rare 12/10/21 05:56 Giant Platelets Not Reportable 12/10/21 05:56 Platelet Satelliting Not Reportable 12/10/21 05:56 Plt Morphology Comment Not Reportable 12/10/21 05:56 RBC Morphology Not Reportable 12/10/21 05:56 Dimorphic RBCs Not Reportable 12/10/21 05:56 Polychromasia Rare 12/10/21 05:56 Hypochromasia Not Reportable 12/10/21 05:56 Poikilocytosis Few 12/10/21 05:56 Anisocytosis Not Reportable 12/10/21 05:56 Microcytosis Not Reportable 12/10/21 05:56 Macrocytosis Not Reportable 12/10/21 05:56 Spherocytes Rare 12/10/21 05:56 Pappenheimer Bodies Not Reportable 12/10/21 05:56 Sickle Cells Not Reportable 12/10/21 05:56 Target Cells Rare 12/10/21 05:56 Tear Drop Cells Not Reportable 12/10/21 05:56 Ovalocytes Not Reportable 12/10/21 05:56 Helmet Cells Not Reportable 12/10/21 05:56 Valle-[place] Bodies Not Reportable 12/10/21 05:56 [place] Rings Not Reportable 12/10/21 05:56 Hollister Cells Rare 12/10/21 05:56 Bite Cells Not Reportable 12/10/21 05:56 Crenated Cell Not Reportable 12/10/21 05:56 Elliptocytes Not Reportable 12/10/21 05:56 Acanthocytes (Spur) Rare 12/10/21 05:56 Rouleaux Not Reportable 12/10/21 05:56 Hemoglobin C Crystals Not Reportable 12/10/21 05:56 Schistocytes Not Reportable 12/10/21 05:56 Malaria parasites Not Reportable 12/10/21 05:56 Shawn Bodies Not Reportable 12/10/21 05:56 Hem Pathologist Commnt No 12/10/21 05:56 Sodium 138 mmol/L (137-145) 12/10/21 05:56 Potassium 5.1 mmol/L (3.6-5.0) H 12/10/21 05:56 Chloride 104.4 mmol/L (98-107) 12/10/21 05:56 Carbon Dioxide 21 mmol/L (22-30) L 12/10/21 05:56 Anion Gap 18 mmol/L 12/10/21 05:56 BUN 25 mg/dL (7-17) H 12/10/21 05:56 Creatinine 1.8 mg/dL (0.6-1.2) H 12/10/21 05:56 Estimated GFR 32 ml/min 12/10/21 05:56 BUN/Creatinine Ratio 14 % 12/10/21 05:56 Glucose 94 mg/dL (65-100) 12/10/21 05:56 Calcium 9.9 mg/dL (8.4-10.2) 12/10/21 05:56 Total Bilirubin 1.00 mg/dL (0.1-1.2) 12/10/21 05:56 Direct Bilirubin 0.3 mg/dL (0-0.2) H 12/09/21 14:45 Indirect Bilirubin 0.6 mg/dL 12/09/21 14:45 AST 31 units/L (5-40) 12/10/21 05:56 ALT 7 units/L (7-56) 12/10/21 05:56 Alkaline Phosphatase 81 units/L (35-129) 12/10/21 05:56 Total Protein 7.8 g/dL (6.3-8.2) 12/10/21 05:56 Albumin 3.4 g/dL (3.9-5) L 12/10/21 05:56 Albumin/Globulin Ratio 0.8 % 12/10/21 05:56 Urine Color Yellow (Yellow) 12/09/21 15:21 Urine Turbidity Turbid (Clear) 12/09/21 15:21 Urine pH 6.0 (5.0-7.0) 12/09/21 15:21 Ur Specific [place] 1.010 (1.003-1.030) 12/09/21 15:21 Urine Protein 100 mg/dl mg/dL (Negative) 12/09/21 15:21 Urine Glucose (UA) Neg mg/dL (Negative) 12/09/21 15:21 Urine Ketones Neg mg/dL (Negative) 12/09/21 15:21 Urine Blood Lg (Negative) 12/09/21 15:21 Urine Nitrite Neg (Negative) 12/09/21 15:21 Urine Bilirubin Neg (Negative) 12/09/21 15:21 Urine Urobilinogen < 2.0 mg/dL (<2.0) 12/09/21 15:21 Ur Leukocyte Esterase Lg (Negative) 12/09/21 15:21 Urine WBC (Auto) > 182.0 /HPF (0.0-6.0) H 12/09/21 15:21 Urine RBC (Auto) > 182.0 /HPF (0.0-6.0) 12/09/21 15:21 U Epithel Cells (Auto) 6.0 /HPF (0-13.0) 12/09/21 15:21 Urine WBC Clumps 3+ /HPF 12/09/21 15:21 Urine Mucus Few /HPF 12/09/21 15:21 [place]/IV: Voiding Method External Female Catheter Active Medications - Current Medications Current Medications: Generic Name Dose Route Start Last Admin Trade Name Freq PRN Reason Stop Dose Admin Acetaminophen 650 mg 12/09/21 19:26 12/10/21 23:45 Acetaminophen 325 Mg Tab PO 650 mg Q4H PRN Administration Pain MILD(1-3)/Fever >100.5/LOPEZ Levofloxacin 250 mg 12/12/21 15:00 12/14/21 14:24 Levofloxacin 250 Mg Tab PO 12/16/21 15:01 250 mg Q48H BREEZY Administration Protocol Morphine Sulfate 2 mg 12/09/21 19:26 Morphine 2 Mg/1 Ml Inj IV Q4H PRN Pain, Moderate (4-6) Ondansetron HCl 4 mg 12/09/21 19:26 Ondansetron 4 Mg/2 Ml Inj IV Q8H PRN Nausea And Vomiting Sodium Chloride 10 ml 12/09/21 22:00 12/15/21 09:15 Sodium Chloride 0.9% 10 Ml Flush Syringe IV 10 ml BID BREEZY Administration Sodium Chloride 10 ml 12/09/21 19:26 Sodium Chloride 0.9% 10 Ml Flush Syringe IV PRN PRN LINE FLUSH
--- NOTE | 2021-12-15 13:13 | Discharge Summary ---
Providers - Providers Date of Admission: 12/09/21 19:26 Attending physician: RAMONA VALDEZ 12/09/21 Consult to Case Management [CONS] Routine Services Needed at Discharge: Hosiery Mater Notified:: CM Additional Physician Instructions: Patient is requesting for SNF placement 12/10/21 09:44 Occupational Therapy Evaluate and Treat [CONS] Stat Comment: Eval and Treat Reason For Exam: Occupational Therapy Physical Therapy Evaluation and Treat [CONS] Stat Comment: Eval and Treat Reason For Exam: Physical Therapy Primary care physician: AREA SUPERVISOR Hospitalization Condition: Stable Disposition: 30 STILL A PATIENT Exam - Constitutional Vitals: Temp Pulse Resp BP Pulse Ox 97.7 F 89 16 102/59 97 12/15/21 04:17 12/15/21 04:17 12/15/21 04:17 12/15/21 04:17 12/15/21 11:11 Plan Follow up with: PRIMARY MD CLEMENT [Primary Care Provider] - 3-5 Days
== END 2021-12-15 19:30 | DRG 689 ==
LOC: ED 12:24 → 3A 19:26
PROVIDERS: ADMIT Internal Medicine; ATTEND Internal Medicine
DX: N39.0 Urinary tract infection, site not specified (principal); N17.0 Acute kidney failure with tubular necrosis; R65.10 Systemic inflammatory response syndrome (SIRS) of non-infectious origin without acute organ dysfunction; E46 Unspecified protein-calorie malnutrition; G30.9 Alzheimer's disease, unspecified; F02.80 Dementia in other diseases classified elsewhere, unspecified severity, without behavioral disturbance, psychotic disturbance, mood disturbance, and anxiety; Z82.49 Family history of ischemic heart disease and other diseases of the circulatory system; E78.5 Hyperlipidemia, unspecified; I10 Essential (primary) hypertension; Z68.30 Body mass index [BMI] 30.0-30.9, adult; I48.0 Paroxysmal atrial fibrillation; Z20.822 Contact with and (suspected) exposure to COVID-19
CPT/HCPCS: 36415; 80048; 80053; 80076; 81001; 85007; 85025; G0378; J3490; J0696; U0003